=== PATIENT | female | born 1985 | race Caucasian/White ===

== ENCOUNTER → 2020-09-16 | Outpatient (CLI) | payer BC ==
--- NOTE | 2020-09-16 12:51 | Diagnostic Imaging Report ---
PROCEDURE: US Non-ob pelvis comp/trans. TECHNIQUE: Multiple realtime grayscale images were obtained of the pelvis in various projections endovaginally. Transabdominal imaging was also performed. INDICATION: Amenorrhea. COMPARISON: None available. FINDINGS: The uterus measures 9.5 x 4.5 x 4.9 cm. The myometrium is normal in echogenicity without discrete mass. The endometrium measures up to 0.8 cm where visualized, and is normal in echogenicity. There are few simple nabothian gland cyst noted. The right ovary measures 3.4 x 2.6 x 2.7 cm. The left ovary measures 3.3 x 2.3 x 2.4 cm. Both ovaries are physiologic in appearance. Blood flow is seen in both ovaries on color doppler imaging. No suspicious adnexal mass or fluid collection. No free pelvic fluid. IMPRESSION: 1. Physiologic appearance of the ovaries and endometrium. Dictated by: Dictated on workstation # [id number]
== END ==
LOC: RAD 10:00
PROVIDERS: ATTEND Obstetrics & Gynecology
DX: N91.1 Secondary amenorrhea (principal)
CPT/HCPCS: 36415; 76830; 76856; 83001; 83002; 83036; 84146; 84443; 84702

== ENCOUNTER 2021-01-29 10:34 | Outpatient (CLI) | payer BC ==
[~2021-01-29] VITALS: Ht 152.4 cm; Wt 90.8 kg
[2021-01-29] MEDS ORDERED: TOPI25CA4 PO (11:47)
[2021-01-29] MEDS ORDERED: [UNRECOGNIZED DRUG - CODE] TP (11:47)
[2021-01-29] MEDS ORDERED: ALPR.25T PO (11:47)
[2021-01-29] MEDS ORDERED: CARI1.5C PO (11:47)
[2021-01-29] MEDS ORDERED: DOXY100T2 PO (11:47)
[2021-01-29] MEDS ORDERED: SUCR1TAB PO (11:47)
[2021-01-29] MEDS ORDERED: BUSP5TAB59 PO (11:47)
[2021-01-31] MEDS ORDERED: PANT40TA2 PO (10:06)
== END 2021-01-29 14:31 ==
LOC: PREOP 10:34
PROVIDERS: ATTEND Surgery
DX: Z01.812 Encounter for preprocedural laboratory examination (principal); K21.9 Gastro-esophageal reflux disease without esophagitis; Z20.822 Contact with and (suspected) exposure to COVID-19
CPT/HCPCS: 87635

== ENCOUNTER 2021-01-31 09:17 | Day surgery (SDC) | payer BC ==
[~2021-01-31] VITALS: Ht 152 cm; Wt 91.0 kg
[~2021-01-31 09:17] MED LIST: ALPR.25T PO; BUSP5TAB59 PO; CARI1.5C PO; DOXY100T2 PO; SUCR1TAB PO; TOPI25CA4 PO; [UNRECOGNIZED DRUG - CODE] TP
[2021-01-31] MEDS ORDERED: LACTATED RINGERS 1,000 ML IV ONE (09:32)
[2021-01-31] MEDS ORDERED: LACTATED RINGERS 1,000 ML IV STA (09:33)
[2021-01-31 09:39] VITALS: BP 132/89
[2021-01-31] MEDS ORDERED: HURRICAINE EXT TUBE (BENZOCAINE) XX PRN (09:45)
[2021-01-31] MEDS ORDERED: LIDOCAINE JELLY 2% 6 ML SYRINGE MM PRN (09:45)
[2021-01-31] MEDS ORDERED: MIDAZOLAM 2 MG/2 ML (VERSED) VIAL ONE (10:03)
[2021-01-31] MEDS ORDERED: proPOfol 200 MG/20 ML (DIPRIVAN) VIAL IV ONE (10:04)
--- NOTE | 2021-01-31 10:05 | Progress Note-Pre Operative ---
Pre-Operative Progress Note H&P Reviewed The H&P was reviewed, patient examined and no changes noted. Date Seen by Provider: Jan 31, 2021 Time Seen by Provider: 10:00 Date H&P Reviewed: Jan 31, 2021 Time H&P Reviewed: 10:00 Pre-Operative Diagnosis: FERNANDA CAMERON MD Jan 31, 2021 10:05
[2021-01-31] MEDS ORDERED: PANT40TA2 PO (10:06)
--- NOTE | 2021-01-31 10:06 | Discharge Inst-Surgical ---
D/C Lap Instructions-KIDO New, Converted, or Re-Newed RX: RX on Chart Follow Up Activity as tolerated High Fiber Diet 25g or more per day Avoid Alcohol, Caffeine, Spicy [place] and Acid foods. Drink 64 fluid oz or more of fluids per day. Symptoms to Report: Fever over 101 degree F, Nausea/Vomiting If any problems/questions: Contact your physician or go to Emergency Room FERNANDA VERA MD Jan 31, 2021 10:06
[2021-01-31] MEDS ORDERED: HYDROcodone/APAP 5 MG/325 MG (LORTAB) TAB PO PRN (10:15)
[2021-01-31] MEDS ORDERED: morphine INJ 10 MG/ML 1ML (SYR OR VIAL) IVP PRN ×2 (10:15)
[2021-01-31] MEDS ORDERED: ACETAMINOPHEN 325 MG TABLET PO PRN (10:15)
[2021-01-31] MEDS ORDERED: ONDANSETRON 4 MG/2 ML (SDV) Z0FRAN IVP PRN (10:15)
[2021-01-31 10:25] VITALS: BP 125/75
[2021-01-31 10:30] VITALS: BP 122/79
[2021-01-31 10:35] VITALS: BP 108/68
[2021-01-31 10:40] VITALS: BP 132/89
[2021-01-31 11:10] VITALS: BP 110/70
--- NOTE | 2021-01-31 11:35 | Progress Note-Post Operative ---
Post-Operative Progess Note Surgeon (s)/[employer] Driver (s) Surgeon FERNANDA VERA MD [employer] Driver: briana choi [employer] Pre-Operative Diagnosis GERD Post-Operative Diagnosis reflux esophagitis(stage 2), small HH(2cm), moderate gastritis. Procedure & Operative Findings Date of Procedure 01/31/21 Procedure Performed/Findings EGD with bx. Anesthesia Type mac Estimated Blood Loss Estimated blood loss (mL): minimal Specimens/Packing Specimens Removed ge jxn, antrum FERNANDA VERA MD Jan 31, 2021 11:35
--- NOTE | 2021-01-31 14:31 | Anesthesia-General Post-Op ---
MAC Patient Condition Mental Status/LOC: Same as Preop Cardiovascular: Satisfactory Nausea/Vomiting: Absent Respiratory: Satisfactory Pain: Controlled Complications: Absent Post Op Complications Complications None Follow Up Care/Instructions Patient Instructions None needed. Anesthesiology Discharge Order Discharge Order Patient was seen after the procedure and she was doing well, no complaints, stable vital signs, no apparent adverse anesthesia problems. TOVA JARRETT 25, 2021 14:31
--- NOTE | 2021-01-31 15:23 | OPERATIVE REPORT ---
DATE OF SERVICE: 01/31/2021 PREOPERATIVE DIAGNOSES: Gastroesophageal reflux disease, regurgitation. POSTOPERATIVE DIAGNOSES: Reflux esophagitis between stage II and III, small hiatal hernia 1.5 to 2 cm in size, moderate gastritis, normal duodenum. PROCEDURE: EGD with biopsy. SURGEON: Fernanda Vera MD. ANESTHESIA: Monitored anesthesia care. ESTIMATED BLOOD LOSS: Minimal. FINDINGS: Reflux esophagitis between stage II and III, small hiatal hernia 1.5 to 2 cm in size, moderate gastritis, normal duodenum. DISPOSITION: The patient tolerated the procedure well. INDICATIONS: The patient is a 35-year-old female who has had issues with reflux as well as nausea and vomiting for the past year. She has been on different [id number] medications as well as prescription medications; however, states that they have all become less effective over time. She does not report any issues with hematemesis, no coffee ground emesis. She does state that red sauces and spicy foods do make her symptoms worse. DESCRIPTION OF PROCEDURE: The patient was brought to the endoscopy suite, laid in left lateral decubitus position. After adequate IV pain and sedative medications and monitored anesthesia care, the mouthpiece was applied. The endoscope was placed in the mouth, visualizing the pharynx and hypopharyngeal region. The endoscope was gently intubated into the esophageal opening and esophagus insufflated. The endoscope was then advanced to the first, second and third portion of esophagus at the level of the GE junction, a reflux esophagitis between stage II and III identified. There were no ulcers or strictures identified in this region. A biopsy was taken with forceps with visualization of good hemostasis. A biopsy was taken of the GE junction with visualization of good hemostasis. The endoscope was then advanced into the stomach and endoscope retroflexed, visualizing a small hiatal hernia approximately 1.5 to 2 cm in size. There was a moderate level of gastritis. There were no formal ulcerations, polyps, or any neoplasms. A biopsy was taken of the antrum to rule out H. pylori with visualization of good hemostasis. The endoscope was then advanced to the pylorus and the first and second portion of the duodenum, which appeared normal with no distal obstructions. The endoscope was then slowly withdrawn while taking a second look and suctioning of residual air with no additional findings. The patient tolerated the procedure well. We will recommend medical management with the necessary lifestyle and diet accommodation including avoidance of caffeinated beverages, spicy, greasy and acidic foods as well as small and more frequent meals and avoidance of eating at night. Any type of modality for regularly scheduled diet and exercise and weight loss will also be extremely beneficial. For now, we will start her on a b.i.d. dosing of a PPI with pantoprazole 40 mg daily as well as omeprazole 40 mg daily, taken at different times of the day. Job ID: [id number] DocumentID: [id number] Dictated Date: 01/31/2021 10:29:40 Senior Research Associate Date: 01/31/2021 15:22:49 Dictated By: FERNANDA VERA MD
== END 2021-01-31 11:25 | disposition home or self-care (01) ==
LOC: ENDO 09:17
PROVIDERS: ATTEND Surgery
DX: K29.50 Unspecified chronic gastritis without bleeding (principal); K21.00 Gastro-esophageal reflux disease with esophagitis, without bleeding; K44.9 Diaphragmatic hernia without obstruction or gangrene; F32.9 Major depressive disorder, single episode, unspecified; F41.9 Anxiety disorder, unspecified; G43.909 Migraine, unspecified, not intractable, without status migrainosus; L71.9 Rosacea, unspecified; Z79.899 Other long term (current) drug therapy
CPT/HCPCS: 88305